=== PATIENT | female | born 1960 | race Caucasian/White ===

== ENCOUNTER 2018-09-19 14:01 | Emergency (ER) | payer BC ==
[~2018-09-19] VITALS: Ht 165.1 cm; Wt 113.4 kg
[~2018-09-19 14:01] MED LIST: ACETAZOLAMIDE250 MG PO; ALBUTEROL0.63 MG/3 NEB; FERRALET 90 DU1 EACH PO; FLONASE NS; LISINOPRIL10 MG PO; PANTOPRAZOLE SO40 MG PO; PROVENTIL INH; RED YEAST RICE600 MG PO; SERTRALINE HCL25 MG PO; SINGULAIR10 MG PO; SUMATRIPTAN SUC50 MG PO; TURMERIC PO; VITAMIN D PO
[2018-09-19] MEDS ORDERED: ASPIRIN 81 MG CHEW TAB PO ONE (14:30)
[2018-09-19 14:52] LABS: CLARITY,URINE SL CLOUDY (CLEAR); COLOR,URINE YELLOW (YELLOW)
[2018-09-19 14:53] LABS: BILIRUBIN,URINE NEGATIVE (NEGATIVE); KETONES,URINE NEGATIVE (NEGATIVE); LEUKOCYTE ESTERASE ,URINE TRACE (NEGATIVE); NITRITE,URINE NEGATIVE (NEGATIVE); PROTEIN,URINE DIPSTICK NEGATIVE (NEGATIVE); URINE UROBILINOGEN 0.2 mg/dL (0.2 - 1)
--- NOTE | 2018-09-19 15:12 | Diagnostic Imaging Report ---
Examination: Single AP view of the chest. COMPARISON: None. INDICATION: Chest pain DISCUSSION: Lines/tubes: None. Lungs: Small bulla left apex. No pneumonia or pulmonary edema. Pleura: No pleural effusion or pneumothorax. Heart and mediastinum: The heart and the mediastinum are unremarkable. Bones and soft tissues: No acute bony abnormalities. IMPRESSION: 1. No acute cardiopulmonary abnormalities. Signed by: Dr. Martinez Harley M.D. on 09/19/2018 3:09 PM
[2018-09-19 15:22] LABS: BACTERIA,URINE FEW /HPF; EPITHELIAL CELLS,URINE MODERATE /LPF
[2018-09-19 16:15] LABS: BASOPHILS % 0.5 % (0.0-1.0); EOSINOPHILS # (AUTO) 0.3 (0.0-0.4); EOSINOPHILS % 4.5 % (0.0-6.0); HEMATOCRIT 38.6 % (34.2-44.1); HEMOGLOBIN 11.9 g/dL (12.0-16.0); LYMPHOCYTES # (AUTO) 1.4 (1.0-3.2); LYMPHOCYTES % 22.1 % (18.0-39.1); MEAN CORPUSCULAR HEMOGLOBIN 26.4 pg (28-32); MEAN CORPUSCULAR HGB CONC 30.8 g/dL (31-35); MEAN CORPUSCULAR VOLUME 85.8 fL (81-99); MONOCYTES # (AUTO) 0.4 (0.2-0.8); NEUTROPHILS # (AUTO) 4.1 (2.1-6.9); NEUTROPHILS % 65.6 % (38.7-80.0); PLATELET COUNT 208 x10e3/uL (140-360); RED CELL DISTRIBUTION WIDTH 14.4 % (11.7-14.4)
[2018-09-19 16:23] LABS: INR 0.88; PROTHROMBIN TIME 12.4 seconds (11.9-14.5)
[2018-09-19 16:24] LABS: PARTIAL THROMBOPLASTIN TIME 25.5 seconds (23.8-35.5)
[2018-09-19 16:31] LABS: ALANINE AMINOTRANSFERASE 14 IU/L (0-55); ALBUMIN 3.7 g/dL (3.5-5.0); ALBUMIN/GLOBULIN RATIO 0.9 (0.8-2.0); ALKALINE PHOSPHATASE 62 IU/L (40-150); ANION GAP 9.8 mmol/L (8-16); BLOOD UREA NITROGEN 14 mg/dL (7-26); BUN/CREATININE RATIO 19 (6-25); CALCIUM 9.9 mg/dL (8.4-10.2); CARBON DIOXIDE 25 mmol/L (22-29); CHLORIDE 105 mmol/L (98-107); CREATINE KINASE 63 IU/L (29-168); CREATININE, SERUM 0.75 mg/dL (0.57-1.11); EST GLOMERULAR FILTRATION RATE > 60 ML/MIN (60-); GLUCOSE 129 mg/dL (74-118); MAGNESIUM 2.1 MG/DL (1.3-2.1); POTASSIUM 3.8 mmol/L (3.5-5.1); SODIUM 136 mmol/L (136-145)
[2018-09-19] MEDS ORDERED: KETOROLAC TROMETHAMINE 30 MG/ML VIAL IV STA (17:07)
--- NOTE | 2018-09-19 18:14 | Diagnostic Imaging Report ---
EXAMINATION: CT scan of the chest with contrast. TECHNIQUE: Helical CT images of the chest were performed from the lung apices to the level of the adrenal glands after the intravenous administration of 100 cc of Isovue 300. Coronal and sagittal reformatted images were obtained.Dose modulation, iterative reconstruction, and/or weight based adjustment of the mA/kV was utilized to reduce the radiation dose to as low as reasonably achievable. COMPARISON: None. CLINICAL HISTORY:Chest pain DISCUSSION: LINES/TUBES: None. LUNGS AND AIRWAYS: The lungs are clear. No pulmonary nodules, masses or consolidation. The airways are normal, without endobronchial lesions. PLEURA: No pneumothorax or pleural effusions. HEART AND MEDIASTINUM: The thyroid gland is normal. The heart and pericardium are within normal limits. Hiatal hernia. LYMPH NODES: There is no mediastinal, hilar or axillary lymphadenopathy. ABDOMEN: Limited contrast-enhanced views of the upper abdomen show no abnormality within the visualized liver, spleen, pancreas, or kidneys. The adrenal glands are normal. BONES AND SOFT TISSUES: No acute bony abnormalities. IMPRESSION: No acute CT finding. No pulmonary embolism. Signed by: Dr. Martinez Harley M.D. on 09/19/2018 6:10 PM
[2018-09-19] MEDS ORDERED: IOPAMIDOL 370 MG/ML 200 ML INFUS..BTL INJ ONE (18:26)
[2018-09-19] MEDS ORDERED: SODIUM CHLORIDE 0.9% 50ML 50 ML ONE (18:26)
[2018-09-19 20:28] VITALS: BP 117/80
== END 2018-09-19 20:30 | disposition home or self-care (01) ==
LOC: ER 14:01
DX: R07.89 Other chest pain (principal); R11.0 Nausea; I10 Essential (primary) hypertension; K21.9 Gastro-esophageal reflux disease without esophagitis
CPT/HCPCS: 36415; 71045; 71260; 80053; 81001; 82550; 82553; 83735; 83880; 84484; 85025; 85379; 85610; 85730; 87086; 93005; 99284; J1885; Q9967

== ENCOUNTER 2019-03-31 19:38 | Emergency (ER) | payer BC ==
[~2019-03-31] VITALS: Ht 165.1 cm; Wt 108.9 kg
[2019-03-31] MEDS ORDERED: SODIUM CHLORIDE 0.9% 1000ML 1,000 ML IV STA (20:04)
[2019-03-31] MEDS ORDERED: FAMOTIDINE 20 MG/2 ML VIAL IV ONE ×2 (20:15→20:57)
[2019-03-31] MEDS ORDERED: ONDANSETRON HCL INJ 2MG/ML 2ML 2 MG/ML VIAL IV ONE (20:15)
[2019-03-31] MEDS ORDERED: ONDANSETRON HCL INJ 2MG/ML 2ML 2 MG/ML VIAL ONE (20:57)
[2019-03-31] MEDS ORDERED: SODIUM CHLORIDE 0.9% 1000ML 1,000 ML ONE (20:57)
[2019-03-31] MEDS ORDERED: SODIUM CHLORIDE 0.9% 50ML 50 ML ONE (21:06)
[2019-03-31] MEDS ORDERED: IOPAMIDOL 370 MG/ML 200 ML INFUS..BTL INJ ONE (21:06)
--- NOTE | 2019-03-31 22:39 | Diagnostic Imaging Report ---
EXAM: CTA Chest (PE protocol), Abdomen and Pelvis WITH contrast INDICATION: Chest pain, left upper quadrant pain COMPARISON: None. TECHNIQUE: Chest, abdomen and pelvis were scanned utilizing a multidetector helical scanner from the lung apex to the pubic symphysis after administration of IV contrast. Chest was scanned in pulmonary arterial phase, with specific attention to the pulmonary arteries. Thin slice reconstructions were created. The abdomen and pelvis were scanned in portal venous phase. Coronal and sagittal reformations were obtained. IV CONTRAST: 100 mL of Isovue 370 ORAL CONTRAST: None COMPLICATIONS: None RADIATION DOSE: Total DLP: 596 mGy*cm Estimated effective dose: (DLP x 0.015 x size factor) mSv CTDIvol has been reviewed. It is below the limits set by the Radiation Protocol Committee (RPC). Dose modulation, iterative reconstruction, and/or weight based adjustment of the mA/kV was utilized to reduce the radiation dose to as low as reasonably achievable. FINDINGS: LINES and TUBES: None. LUNGS AND AIRWAYS: Bilateral central bronchial wall thickening with scattered areas of impaction. The lungs are unremarkable. Airways are normal. PLEURA: The pleural spaces are clear. Large right anterior pericardial fat pad. HEART AND MEDIASTINUM: The thyroid gland is normal. No mediastinal, hilar or axillary lymphadenopathy. The heart is normal in size. There is no pericardial effusion. Minimal atherosclerotic calcifications in the aorta. HEPATOBILIARY: Hepatomegaly, measures 17.1 cm in craniocaudal dimension at the right midclavicular line. No focal hepatic lesions. No biliary ductal dilation. GALLBLADDER: No radio-opaque stones or sludge. No wall thickening. SPLEEN: No splenomegaly. PANCREAS: No focal masses or ductal dilatation. ADRENALS: No adrenal nodules KIDNEYS/URETERS: Kidneys enhance symmetrically. No hydronephrosis. No cystic or solid mass lesions. No stones. GI TRACT: Large parasophageal gastric hernia. No abnormal distention, wall thickening, or evidence of bowel obstruction. Loops of small bowel are adherent to the lower midline anterior peritoneum at a prior laparotomy incision site, no obstruction. Appendix not seen. PELVIC ORGANS/BLADDER: Unremarkable. LYMPH NODES: No lymphadenopathy. VESSELS: Unremarkable. PERITONEUM / RETROPERITONEUM: No free air or fluid. BONES: Degenerative changes in the hips, right greater than left. Degenerative changes in the spine. SOFT TISSUES: Unremarkable. IMPRESSION: 1. Large paraesophageal gastric hernia. Recommend surgical referral. 2. Findings of bronchitis. Signed by: Brant Bolden DO on 03/31/2019 10:36 PM
== END 2019-03-31 23:15 | disposition home or self-care (01) ==
LOC: ER 19:38 → FSED 19:46
DX: K29.00 Acute gastritis without bleeding (principal); K44.9 Diaphragmatic hernia without obstruction or gangrene; I10 Essential (primary) hypertension
CPT/HCPCS: 71260; 74177; 80048; 80076; 81003; 82553; 84484; 85025; 85379; 85610; 93005; 99283; J2405; J7030; Q9967

== ENCOUNTER → 2019-05-11 | Outpatient (CLI) | payer BC ==
--- NOTE | 2019-05-11 11:49 | Diagnostic Imaging Report ---
Upper GI series History: Hiatal hernia Discussion: The patient was given air crystals, thick barium, and thin barium to drink in upright and prone positions. Multiple images of the hypopharynx, esophagus, stomach, duodenum were obtained. Fluoro Time: 0.42 min. Dose: 13.3 mGy reference air kerma The valleculae and piriform sinuses are normal. The esophagus is normal in appearance without evidence of dysmotility, mucosal abnormality, or stricture. There is a large para esophageal hiatal hernia with approximately 50% of the stomach above the diaphragm. Gastroesophageal reflux was visualized during the examination. Contrast normally into the duodenum. IMPRESSION: Large paraesophageal hiatal hernia with approximately 50% of the stomach above the diaphragm. Signed by: Trevor Zarco MD on 05/11/2019 11:45 AM
== END ==
LOC: DX 09:22
PROVIDERS: ATTEND Surgery
DX: K44.9 Diaphragmatic hernia without obstruction or gangrene (principal)
CPT/HCPCS: 74246

== ENCOUNTER 2024-06-24 00:36 | Emergency (ER) | payer OTHER ==
[~2024-06-24] VITALS: Ht 165.1 cm; Wt 113.9 kg
[~2024-06-24 00:36] MED LIST changes: +ALPRAZOLAM0.5 MG PO; +DOXYCYCLINE HY100 MG PO; +FLUOXETINE HCL10 MG PO; +IBUPROFEN200 MG PO; +LEVOTHYROXINE50 MCG PO; +LINZESS72 MCG; +NEXIUM40 MG PO; +NORCO 7.5-3251 EACH PO; +NURTEC ODT75 MG; +ONDANSETRON ODT4 MG PO; +PROAIR HFA INH8.5 GM INH; +PROTRIPTYLINE H10 MG; +QULIPTA60 MG; +TIZANIDINE HCL4 MG PO; +VALACYCLOVIR500 MG PO; +WIXELA 250-501 EACH; +XARELTO10 MG
[2024-06-24 00:46] VITALS: PULSE 88; RESP 18; TEMP 98.2
[2024-06-24] MEDS: ACETAMINOPHEN 325 MG TAB PO ONE (01:12)
[2024-06-24] MEDS ORDERED: CLEOCIN HCL300 MG PO (02:23)
[2024-06-24 02:30] VITALS: BP 165/81; PULSE 88; RESP 18; TEMP 98.2; O2SAT 96
== END 2024-06-24 02:30 | disposition home or self-care (01) ==
LOC: FSED 00:57
DX: M79.604 Pain in right leg (principal); L03.115 Cellulitis of right lower limb; I10 Essential (primary) hypertension; E03.9 Hypothyroidism, unspecified; J45.909 Unspecified asthma, uncomplicated; K21.9 Gastro-esophageal reflux disease without esophagitis; F41.9 Anxiety disorder, unspecified; G47.30 Sleep apnea, unspecified; F32.A Depression, unspecified; M54.9 Dorsalgia, unspecified; G89.29 Other chronic pain
CPT/HCPCS: 93971; 99283

== ENCOUNTER 2024-12-22 08:02 | Inpatient (IN) | payer OTHER ==
[2024-12-22] VITALS (9 sets, daily range): BP systolic 125–130; BP diastolic 82–96; PULSE 114–128; RESP 18–22; TEMP 97.9–98.5; O2SAT 93–100
[~2024-12-22] VITALS: Ht 165.1 cm; Wt 110.7 kg
[~2024-12-22 08:02] MED LIST changes: +CLEOCIN HCL300 MG PO
[2024-12-22] MEDS ORDERED: IOPAMIDOL 370 MG/ML 100 ML INFUS..BTL INJ ONE (09:17)
[2024-12-22] MEDS ORDERED: SODIUM CHLORIDE 0.9% 100 ML ONE (09:17)
[2024-12-22] MEDS ORDERED: SODIUM CHLORIDE FLUSH 10 ML SYR INJ PRN (10:30)
[2024-12-22] MEDS ORDERED: ONDANSETRON HCL INJ 2MG/ML 2ML 2 MG/ML VIAL IV PRN (11:00)
[2024-12-22] MEDS ORDERED: ALBUTEROL/IPRATROPIUM 3 ML NEB NEB PRN (11:00)
[2024-12-22] MEDS ORDERED: AMITIZA24 MCG PO (12:43)
[2024-12-22] MEDS: FUROSEMIDE INJ 10 MG/ML 2 ML VIAL IV ONE ×2 (12:54→12:57)
[2024-12-22] MEDS: ALBUTEROL/IPRATROPIUM 3 ML NEB NEB SCH (13:00)
[2024-12-22] MEDS: ENOXAPARIN SOD INJ 40 MG/0.4 ML SYR SC SCH (16:50)
[2024-12-22] MEDS: CARVEDILOL 3.125 MG TAB PO SCH (16:50)
[2024-12-22] MEDS: METOPROLOL SUCCINATE 25 MG TAB XL PO ONE (21:40)
[2024-12-22] MEDS: ACETAMINOPHEN 325 MG TAB PO PRN (21:45)
[2024-12-23] VITALS (12 sets, daily range): BP systolic 104–127; BP diastolic 63–98; PULSE 100–116; RESP 18–22; TEMP 98.1–98.6; O2SAT 96–100
[2024-12-23 07:10] LABS: BASOPHILS % 0.7 % (0.0-1.0); EOSINOPHILS % 2.8 % (0.0-6.0); LYMPHOCYTES % 21.5 % (18.0-39.1); MONOCYTES % 9.8 % (4.4-11.3); NEUTROPHILS % 64.8 % (38.7-80.0); RED CELL DISTRIBUTION WIDTH 16.1 % (11.7-14.4)
[2024-12-23 07:38] LABS: CHOL/HDL RATIO 3.3 (3.0-3.6); EST GLOMERULAR FILTRATION RATE 93.0 ML/MIN (>=60); LDL CHOLESTEROL 120.0 MG/DL (60-130)
[2024-12-23] MEDS ORDERED: FUROSEMIDE 40 MG TAB PO SCH (09:00)
[2024-12-23] MEDS ORDERED: FUROSEMIDE INJ 10 MG/ML 2 ML VIAL IV SCH (09:00)
[2024-12-23] MEDS ORDERED: LUBIPROSTONE 24 MCG CAP PO PRN (09:30)
[2024-12-23] MEDS ORDERED: LEVALBUTEROL HCL SOLN NEBU 1.25 MG/3 ML NEB INH PRN (09:30)
[2024-12-23 09:38] LABS: EST GLOMERULAR FILTRATION RATE 94.0 ML/MIN (>=60)
[2024-12-23] MEDS: PANTOPRAZOLE SOD 40 MG TABEC PO SCH (10:14)
[2024-12-23] MEDS: FUROSEMIDE INJ 10 MG/ML 2 ML VIAL IV SCH (10:14)
[2024-12-23] MEDS: POTASSIUM CHLORIDE 10MEQ EA PO ONE (10:14)
[2024-12-23] MEDS: METOPROLOL SUCCINATE 50 MG TAB XL PO SCH (10:15)
[2024-12-23] MEDS: ACETAZOLAMIDE 250 MG TAB PO SCH (10:16)
[2024-12-23] MEDS: ASPIRIN 81 MG ENTERIC COATED PO SCH (10:16)
[2024-12-23] MEDS: LOSARTAN POTASSIUM 25 MG TAB PO SCH (10:16)
[2024-12-23] MEDS: FLUOXETINE HCL 10 MG CAP PO SCH (10:35)
[2024-12-23] MEDS: LEVALBUTEROL HCL SOLN NEBU 1.25 MG/3 ML NEB INH SCH (13:04)
[2024-12-23] MEDS: IPRATROPIUM BROMIDE 0.02% 2.5 ML NEB NEB SCH (13:05)
[2024-12-23] MEDS: SALMETEROL XINAF/FLUTICASONE 250/50 MCG INHALER INH SCH (19:18)
[2024-12-23] MEDS: TIZANIDINE HCL 4 MG TAB PO SCH (20:44)
[2024-12-23] MEDS: ALPRAZOLAM 0.5 MG TAB PO SCH (20:45)
[2024-12-24] VITALS (9 sets, daily range): BP systolic 97–106; BP diastolic 55–78; PULSE 95–109; RESP 17–20; TEMP 97.3–98.6; O2SAT 94–99
[2024-12-24 06:09] LABS: EST GLOMERULAR FILTRATION RATE 99.0 ML/MIN (>=60)
[2024-12-24] MEDS: LEVOTHYROXINE SODIUM 50 MCG TAB PO SCH (08:41)
[2024-12-24] MEDS ORDERED: PERFLUTREN LIPID MICROSPHERES 2 ML VIAL IV ONE (09:21)
[2024-12-25] VITALS (20 sets, daily range): BP systolic 98–119; BP diastolic 64–90; PULSE 76–114; RESP 15–24; TEMP 97–98.8; O2SAT 93–100
[2024-12-25] MEDS: SODIUM CHLORIDE 0.9% 1000ML 1,000 ML IV SCH ×2 (01:00→13:34)
[2024-12-25 06:14] LABS: BASOPHILS % 0.8 % (0.0-1.0); EOSINOPHILS % 4.1 % (0.0-6.0); LYMPHOCYTES % 26.9 % (18.0-39.1); MONOCYTES % 11.3 % (4.4-11.3); NEUTROPHILS % 56.5 % (38.7-80.0); RED CELL DISTRIBUTION WIDTH 16.0 % (11.7-14.4)
[2024-12-25 06:41] LABS: EST GLOMERULAR FILTRATION RATE 96.0 ML/MIN (>=60)
[2024-12-25] MEDS: HEPARIN SOD/SOD CHLORIDE 2,000 ML ONE (16:50)
[2024-12-25] MEDS: HEPARIN SOD (PORCINE) 1000 UNIT/ML 30ML ONE (16:50)
[2024-12-25] MEDS: VERAPAMIL HCL 2.5 MG/ML 2 ML VIAL ONE (16:50)
[2024-12-25] MEDS: LIDOCAINE HCL 2% LOCAL 20 ML VIAL ONE (16:50)
[2024-12-25] MEDS: NITROGLYCERIN/D5W 200 MCG/ML 250 ML ONE (16:51)
[2024-12-25] MEDS: DIPHENHYDRAMINE HCL INJ 50 MG/ML VIAL ONE (16:51)
[2024-12-25] MEDS: FENTANYL CITRATE/PF 100MCG/2 ML INJ ONE (16:51)
[2024-12-25] MEDS: SODIUM CHLORIDE 0.9% 1000ML 1,000 ML ONE (16:51)
[2024-12-25] MEDS: MIDAZOLAM HCL 2 MG/2 ML VIAL ONE (16:51)
[2024-12-25] MEDS: IOPAMIDOL 370 MG/ML 100 ML INFUS..BTL INJ ONE (16:51)
[2024-12-25] MEDS: HYDROMORPHONE 1MG/1ML INJ IV ONE (16:53)
[2024-12-26] VITALS (11 sets, daily range): BP systolic 83–107; BP diastolic 57–91; PULSE 71–115; RESP 14–21; TEMP 97.3–98.6; O2SAT 93–100
[2024-12-26] MEDS: SPIRONOLACTONE 25 MG TAB PO SCH (09:02)
[2024-12-27] VITALS (7 sets, daily range): BP systolic 90–98; BP diastolic 57–68; PULSE 73–78; RESP 15–18; TEMP 97.8–98.2; O2SAT 95–100
[2024-12-27 05:21] LABS: BASOPHILS % 0.6 % (0.0-1.0); EOSINOPHILS % 4.2 % (0.0-6.0); LYMPHOCYTES % 22.4 % (18.0-39.1); MONOCYTES % 14.1 % (4.4-11.3); NEUTROPHILS % 58.4 % (38.7-80.0); RED CELL DISTRIBUTION WIDTH 15.9 % (11.7-14.4)
[2024-12-27 05:57] LABS: EST GLOMERULAR FILTRATION RATE 98.0 ML/MIN (>=60)
[2024-12-27 06:10] LABS: PHOSPHORUS 4.1 MG/DL (2.3-4.7)
[2024-12-27] MEDS: SPIRONOLACTONE 25 MG TAB PO SCH (09:08)
[2024-12-27] MEDS: FUROSEMIDE 40 MG TAB PO SCH (09:08)
== END 2024-12-27 11:04 | disposition home or self-care (01) | DRG 286 ==
LOC: FSED 08:15 → ERHOLD 10:21 → MED/SURG 11:28
PROVIDERS: ADMIT Internal Medicine; ATTEND Internal Medicine
PROC: 4A023N7 Measurement of Cardiac Sampling and Pressure, Left Heart, Percutaneous Approach (ICD-10-PCS; principal; 2024-12-25)
PROC: B2111ZZ Fluoroscopy of Multiple Coronary Arteries using Low Osmolar Contrast (ICD-10-PCS; 2024-12-25)
PROC: B2151ZZ Fluoroscopy of Left Heart using Low Osmolar Contrast (ICD-10-PCS; 2024-12-25)
DX: I11.0 Hypertensive heart disease with heart failure (principal); I50.21 Acute systolic (congestive) heart failure; J18.9 Pneumonia, unspecified organism; J90 Pleural effusion, not elsewhere classified; Z68.41 Body mass index [BMI] 40.0-44.9, adult; I42.8 Other cardiomyopathies; E66.01 Morbid (severe) obesity due to excess calories; E78.00 Pure hypercholesterolemia, unspecified; E03.9 Hypothyroidism, unspecified; G43.909 Migraine, unspecified, not intractable, without status migrainosus; Z11.52 Encounter for screening for COVID-19; Z79.899 Other long term (current) drug therapy
CPT/HCPCS: 0223U; 36415; 71260; 76937; 80048; 80053; 80061; 80076; 81003; 82550; 82948; 83735; 83880; 84100; 84443; 84484; 85025; 85379; 87400; 93005; 93306; 93308; 93458; 94660; 94664; 94799; 99152; 99283; C1887; J0696; J1200; J1644; J1650; J1938; J2003; J2250; J2470; J7030; J7050; Q9967